=== PATIENT | male | born 1945 | race Caucasian/White ===

== ENCOUNTER → 2020-01-10 | Outpatient (CLI) | payer OTHER ==
[~2020-01-10] MED LIST: ALEVE220 MG PO; ALLOPURINOL 30300 M1 PO; ALLOPURINOL 30300 M2 PO; ASA5UEC PO; ASPIR 8181 MG PO; ASPIRIN325 PO; BYSTOLIC20 MG PO; CENTRUM SILVER1 EAC4 PO; CRESTOR10 MG PO; FISH OIL 1,0001 EAC5 PO; FISH OIL 1,0001 EAC9 PO; FISH OIL 1,001000 M2 PO; FLAX OIL1000 MG PO; FUROSEMIDE 20 M20 M1 PO; GEMFIBROZIL 60600 MG PO; IMDUR 60 MG TAB60 M1 PO; ISOSORBIDE MON120 MG PO; LASIX 20 MG TAB20 MG PO; LIPITOR 20 MG T20 M1 PO; LORTAB 5-500 T1 EAC1 PO; MIDODRINE HCL 55 M1 PO; MIDODRINE HCL2.5 M1 PO; MINIPRIN81 MG PO; NIASPAN 500 MG500 M1 PO; NITROGLYCERIN0.4 MG SUBLING; NORVASC 2.5 MG2.5 M1 PO; NORVASC2.5 MG PO; OMEGA-31000 M1 PO; PLAVIX 75 MG TA75 M1 PO; PLAVIX 75 MG TA75 MG PO; RANEXA 500 MG500 M1 PO; RANEXA1000 MG PO; RANEXA500 MG PO; SORINE 80 MG TA80 M1 PO; TOPROL XL100 MG PO; TOPROL XL25 MG PO; TOPROL XL50 MG PO; ZOCOR 20 MG TAB20 M1 PO
== END ==
LOC: NUC 06:58
PROVIDERS: ATTEND Internal Medicine
DX: I25.110 Atherosclerotic heart disease of native coronary artery with unstable angina pectoris (principal); Z98.61 Coronary angioplasty status